=== PATIENT | female | born 1955 | race Asian ===

== ENCOUNTER 2018-06-18 09:05 | Day surgery (SDC) | payer BC ==
[~2018-06-18] VITALS: Ht 170.2 cm; Wt 56.7 kg
[~2018-06-18 09:05] MED LIST: CEFAZOLIN 1 GM IVPB PREMIX 50 ML IV ONE
[2018-06-18] MEDS ORDERED: DEXAMETHASONE SOD PHOSPHATE 4 MG/ML VIAL IVP ONE (11:45)
[2018-06-18] MEDS ORDERED: fentaNYL CITRATE 250 MCG/5 ML AMP IV ONE (11:45)
[2018-06-18] MEDS ORDERED: LR 1,000 ML IV.SOLN IV ONE (11:45)
[2018-06-18] MEDS ORDERED: ROCURONIUM BROMIDE 10 MG/ML (ZEMURON) IV ONE (11:45)
[2018-06-18] MEDS ORDERED: SEVOFLURANE 15 MIN GAS INH ONE (11:45)
[2018-06-18] MEDS ORDERED: KETOROLAC TROMETHAMINE 30 MG VIAL IVP ONE (11:45)
[2018-06-18] MEDS ORDERED: ONDANSETRON HCL 4 MG/2 ML VIAL IVP ONE (11:45)
[2018-06-18] MEDS ORDERED: NS IRRIG SOLN 1000 ML IR ONE (11:45)
[2018-06-18] MEDS ORDERED: PROPOFOL 200MG/ 20ML VIAL (DIPRIVAN) IV ONE (11:45)
[2018-06-18] MEDS ORDERED: BUPIVACAINE /PF 0.25% 30 ML VIAL INJ ONE (11:45)
[2018-06-18] MEDS ORDERED: MIDAZOLAM HCL 5 MG/5 ML VIAL IVP ONE (11:45)
[2018-06-18] MEDS ORDERED: LR 1,000 ML IV SCH (12:48)
[2018-06-18] MEDS ORDERED: HYDROmorphone 2 MG/ML VIAL IVP PRN ×2 (13:00)
[2018-06-18] MEDS ORDERED: MEPERIDINE HCL/PF 25 MG/ML DISP.SYRIN IVP PRN (13:00)
[2018-06-18] MEDS ORDERED: HYDROmorphone 1 MG INJ. 1 MG/ML AMPUL IVP PRN ×2 (13:00→13:15)
[2018-06-18] MEDS ORDERED: D5/0.45 NS 1,000 ML IV SCH (13:06)
[2018-06-18] MEDS ORDERED: HYDROcodone/ACETAMIN 5-325 MG TAB (NORCO/ VICODIN) PO PRN ×2 (13:15)
[2018-06-18 14:10] VITALS: BP_SYST 118
== END 2018-06-18 16:15 | disposition home or self-care (01) ==
LOC: SDS 09:05
PROVIDERS: ATTEND Colon & Rectal Surgery
DX: D17.21 Benign lipomatous neoplasm of skin and subcutaneous tissue of right arm (principal); Z90.710 Acquired absence of both cervix and uterus; Z79.899 Other long term (current) drug therapy; Z98.890 Other specified postprocedural states; J30.9 Allergic rhinitis, unspecified; H61.20 Impacted cerumen, unspecified ear
CPT/HCPCS: 24073; 88304; J0690; J1100; J1885; J2250; J2405; J2704; J3010; J3490; J7120